=== PATIENT | female | born 1965 | race Caucasian/White ===

== ENCOUNTER 2020-08-13 16:24 | Emergency (ER) | payer OTHER, BC ==
[~2020-08-13] VITALS: Ht 167.6 cm; Wt 66.2 kg
[~2020-08-13 16:24] MED LIST: ALBU90OI INH; ATOR40TA PO; Paxil40 MG PO; TRAZ50 PO
== END 2020-08-13 19:43 | disposition home or self-care (01) ==
LOC: ER 16:24
DX: S69.92XA Unspecified injury of left wrist, hand and finger(s), initial encounter (principal); M25.552 Pain in left hip; F17.210 Nicotine dependence, cigarettes, uncomplicated; V58.4XXA Person boarding or alighting a pick-up truck or van injured in noncollision transport accident, initial encounter; Y92.410 Unspecified street and highway as the place of occurrence of the external cause
CPT/HCPCS: 29125; 73110; 99283-25

== ENCOUNTER 2021-12-11 06:21 | Day surgery (SDC) | payer BC ==
[~2021-12-11 06:21] MED LIST changes: +BUPROPION HCL100 MG PO
--- NOTE | 2021-12-11 08:26 | NUR ---
12/11/21 0826 Felipe Gardner BACITRACIN TOPICAL OINTMENT APPLIED TO INCISIONS PER DR. CAMPOS
--- NOTE | 2021-12-11 08:59 | NUR ---
PT ALERT AND ORIENTED X4, REQUESTING PO FLUIDS (COFFEE). PT HAS TWO INSICIONS ON HEAD, ONE NEAR THE FOREHEAD HAIRLINE AND ANOTHER ON BACK OF THE HEAD. BOTH INCISIONS HAVE DERMABOND IN PLACE, INCISIONS ARE CLEAN, DRY AND INTACT. NO SWELLING, DRAINAGE NOTED.
--- NOTE | 2021-12-11 09:21 | NUR ---
LATE NOT. ADMISSION DONE PATIENT STATES NPO GLASSES WITH
--- NOTE | 2021-12-11 09:23 | NUR ---
Patient up to Ambulate independently. Gait steady. Discharge instructions reviewed with patient. Patient verbalizes understanding. Copy given to patient to take home. Patient States Post-Procedure ride home has been arranged. Discharged via wheelchair to private car for ride home. DressingS to procedure site clean, dry, intact with no visible drainage, swelling, erythema or bruising noted. ALL BELONGINGS RETURNED TO PATIENT.
== END 2021-12-11 22:53 | disposition home or self-care (01) ==
LOC: ORSCMMR 06:21 → ORD 07:30 → ORSCMMR 07:30
PROVIDERS: Surgery
PROC: 0HB0XZX Excision of Scalp Skin, External Approach, Diagnostic (ICD-10-PCS; principal; 2021-12-11 07:30)
DX: L72.11 Pilar cyst (principal); L98.9 Disorder of the skin and subcutaneous tissue, unspecified; F17.210 Nicotine dependence, cigarettes, uncomplicated; E78.5 Hyperlipidemia, unspecified; F32.A Depression, unspecified; Z79.899 Other long term (current) drug therapy
CPT/HCPCS: 88304; A9270; J0171; J0690; J1100; J1885; J2370; J2405; J2704; J3010; J7120

== ENCOUNTER → 2022-02-10 | Outpatient (CLI) | payer BC | END | disposition home or self-care (01) | LOC: LAB SHORT 07:33 → LAB 07:33 → PLD 07:33 | DX: N95.0 Postmenopausal bleeding (principal); R93.89 Abnormal findings on diagnostic imaging of other specified body structures | CPT/HCPCS: 88305 ==

== ENCOUNTER 2023-01-22 06:28 | Day surgery (SDC) | payer OTHER ==
[~2023-01-22] VITALS: Ht 170.2 cm; Wt 66.4 kg
[~2023-01-22 06:28] MED LIST changes: +ESTRADIOL PO; +MELO7.5 PO; +PROG100; +TESTOSTERONE PELLET
[2023-01-22] MEDS ORDERED: Percocet 5-3251 EACH PO (12:23)
[2023-01-22] MEDS ORDERED: MOTRIN IB200 MG PO (12:24)
--- NOTE | 2023-01-22 12:40 | NUR ---
DISCHARGE SUMMARY PT A&OX4, VSS/RA, NO PO, VOIDED, AMB IND TO [facility]/UP TO CHAIR, PAIN MANAGED, IV DC'D. DC INS PROVIDED. PT REP UNDERSTANDING THOSE INSTRUCTIONS INCLUDING FU WITH SURGEON 2 WKS, WEAR ABD BINDER WHILE UP/SPLINTING ABD, LEAVE STERIS IN PLACE 7-10 DAYS, OK TO SHOWER 01/23/23. LEFT FLOOR VIA WC WITH CHIEF MECHANICAL OFFICER TO GO HOME WITH WITH ALL PERSONAL POSSESSIONS INCLUDING DC PACKET AND 1 NARC/MOTRIN SCRIPT.
== END 2023-01-22 12:40 | disposition home or self-care (01) ==
LOC: ORSCMMR 06:28 → ORD 10:00 → SURS 10:13 → ORSCMMR 12:40
PROVIDERS: Obstetrics & Gynecology
PROC: 0UT2FZZ Resection of Bilateral Ovaries, Via Natural or Artificial Opening With Percutaneous Endoscopic Assistance (ICD-10-PCS; principal; 2023-01-22 08:00)
PROC: 0UT9FZZ Resection of Uterus, Via Natural or Artificial Opening With Percutaneous Endoscopic Assistance (ICD-10-PCS; principal; 2023-01-22 08:00)
PROC: 0UT7FZZ Resection of Bilateral Fallopian Tubes, Via Natural or Artificial Opening With Percutaneous Endoscopic Assistance (ICD-10-PCS; principal; 2023-01-22 08:00)
DX: N95.0 Postmenopausal bleeding (principal); R93.89 Abnormal findings on diagnostic imaging of other specified body structures; D25.9 Leiomyoma of uterus, unspecified; K66.0 Peritoneal adhesions (postprocedural) (postinfection); F17.210 Nicotine dependence, cigarettes, uncomplicated; Z79.899 Other long term (current) drug therapy
CPT/HCPCS: 88307; A9270; J0690; J1100; J1885; J2250; J2405; J2704; J3010; J7120

== ENCOUNTER 2023-08-20 12:28 | Emergency (ER) | payer OTHER ==
[~2023-08-20] VITALS: Ht 170.2 cm; Wt 64.9 kg
[~2023-08-20 12:28] MED LIST changes: +MOTRIN IB200 MG PO; +Percocet 5-3251 EACH PO
[2023-08-20 12:35] VITALS: BP 150/62
== END 2023-08-20 15:21 | disposition home or self-care (01) ==
LOC: ER 12:28
DX: S60.221A Contusion of right hand, initial encounter (principal); W22.8XXA Striking against or struck by other objects, initial encounter; Z79.899 Other long term (current) drug therapy; F17.210 Nicotine dependence, cigarettes, uncomplicated
CPT/HCPCS: 29125; 73130; 90471; 90715; 99283-25; A9270